=== PATIENT | male | born 2000 | race Caucasian/White ===

== ENCOUNTER 2020-10-29 19:58 | Emergency (ER) | payer OTHER, SELFPAY ==
--- NOTE | ~2020-10-29 | XR_ITS ---
EXAMINATION: XR chest 2V DATE: 10/29/2020 20:19 INDICATION: Midsternal chest pain. Shortness of breath. TECHNIQUE: Frontal and lateral views of the chest were obtained. COMPARISON: None. FINDINGS: The chest demonstrates clear lungs without pneumonia, pleural effusion, or pneumothorax. Th e heart size is normal. IMPRESSION: 1. No acute cardiopulmonary disease. Reviewed, dictated and finalized at location A.
[2020-10-29 20:03] VITALS: BP 138/69; PULSE 67; RESP 17; TEMP 36.9; O2SAT 98
--- NOTE | 2020-10-29 20:06 | ECG_ITS ---
Measurements Intervals [place] Rate: 70 P: 30 RI: 179 QRS: 29 QRSD: 109 T: 62 QT: 359 QTc: 388 Interpretive Statements SINUS RHYTHM INCOMPLETE RIGHT BUNDLE BRANCH BLOCK DELAYED PRECORDIAL R/S TRANSITION ST ELEVATION IN DIFFUSE LEADS- PROBABLY EARLY REPOLARIZATION BORDERLINE ECG Electronically Signed On 10-29-2020 20:15:29 CDT by Colby Simmons D.O.
[2020-10-29] MEDS: ASPIRIN 81 MG CHEWABLE TABLET 324 MG PO (21:23)
[2020-10-29 21:39] LABS: Basophils Percent Auto 0.5 % (0.2-1.2); Eosinophils Absolute Auto 0.1 K/mm3 (0-0.3); Eosinophils Percent Auto 1.4 % (0-4.4); Hematocrit 44.4 % (42.0-52.0); Immature Granulocyte Absolute 0.01 K/mm3 (0.00-0.031); Immature Granulocyte Percent A 0.2 % (0-0.5); Lymphocytes Absolute Auto 2.09 K/mm3 (0.9-3.2); Lymphocytes Percent Auto 36.5 % (18.3-44.2); Mean Corpuscular HGB Conc 33.8 g/dl (32-36); Mean Corpuscular Hemoglobin 30.5 pg (26-34); Mean Corpuscular Volume 90.2 fl (80-100); Mean Platelet Volume 10.6 fl (7.4-10.4); Monocytes Absolute Auto 0.5 K/mm3 (0.1-0.6); Monocytes Percent Auto 8.9 % (2.6-8.5); Neutrophils Percent Auto 52.5 % (45.5-73.1); Platelet Count Result 198 k/mm3 (150-375); Red Blood Count 4.92 M/mm3 (4.6-6.20); Red Cell Distribution Width 12.2 % (11.5-14.5); White Blood Count 5.7 K/mm3 (4.5-10.0)
[2020-10-29 21:48] LABS: INR 1.1; Prothrombin Time 13.7 Seconds (11.1-14.7)
[2020-10-29 21:49] LABS: Partial Thromboplastin Time 28.9 SECONDS (22.3-36.8)
[2020-10-29 21:53] LABS: Anion Gap 10 mmol/L (8-16); Blood Urea Nitrogen 12 mg/dL (9-20); Calcium 9.5 mg/dL (8.4-10.2); Carbon Dioxide 26 mmol/L (22-30); Chloride 105 mmol/L (98-107); Estimated CRCL calculation 114 ml/min; Estimated Glomerular Filt Rate > 60; Glucose 90 mg/dL (65-110); Potassium 4.1 mmol/L (3.4-5.0); Sodium 141 mmol/L (137-145)
[2020-10-29 22:05] LABS: Troponin I < 0.012 ng/mL (0.000-0.034)
--- NOTE | 2020-10-29 22:15 | ED.GENADULT ---
HPI - General Adult General Chief complaint: Chest Pain Stated complaint: chest pain x 1 week from urgent care Time Seen by Provider: 10/29/20 21:16 History of Present Illness HPI narrative: Patient is a 20-year-old male who presents ER with central chest pain. Intermittent over the last week. Occurs only when he feels very stressed out. 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 He will sit down now improved. Family history of anxiety. No personal history of anxiety. No fevers or chills or sweats. No productive cough. No exertional chest pain. Related Data Home Medications Medication Instructions Recorded Confirmed cetirizine [Zyrtec] 10 mg PO DAILY 10/29/20 10/29/20 fluticasone propionate [Flonase] 2 spray INTRANASAL DAILY 10/29/20 10/29/20 Allergies Allergy/AdvReac Type Severity Reaction Status Date / Time No Known Allergies Allergy Verified 10/29/20 20:02 Review of Systems Review of Systems: All systems reviewed & are unremarkable except as noted in HPI and below Constitutional: Constitutional: Denies chills, Denies fever(s) and Denies weakness ENT: Denies nasal congestion and Denies sore throat Cardiovascular: Cardiovascular: Reports chest pain, Denies rapid heart rate and Denies radiating jaw, neck or arm pain Respiratory: Respiratory: Denies cough, Denies dyspnea and Denies wheezing Gastrointestinal: Gastrointestinal: Denies abdominal pain, Denies nausea and Denies vomiting Psychiatric: Psychiatric: Reports anxiety PMFSH Past Medical History Medical History (Updated 10/29/20 @ 22:26 by Alexis Cabrrea MD) Healthy adult male Surgical History Surgical History (Updated 10/29/20 @ 22:25 by Alexis Cabrera MD) No history of previous surgery Social History Social History Gender identity (if verbalized by the patient): Male Exam Narrative: GENERAL: Well-appearing, well-nourished, and in no acute distress. HEAD: Normocephalic, atraumatic. ENT: Mucous membranes moist. CHEST: Clear to auscultation. No respiratory distress. HEART: Regular rate and rhythm. Normal peripheral pulses. EXTREMITIES: Normal range of motion. No edema. SKIN: Warm, dry, no rash. NEURO: Alert and oriented x3. PSYCH: Normal mood and affect. Course Course Emergency Course: Unremarkable evaluation. Discharged with Atarax to take as needed for anxiety. Recommend follow-up with PCP and further evaluation. Vital Signs Vital signs: Vital Signs Temperature 98.4 F 10/29/20 20:03 Pulse Rate 67 10/29/20 20:03 Respiratory Rate 17 10/29/20 20:03 Blood Pressure 138/69 10/29/20 20:03 Pulse Oximetry 98 10/29/20 20:03 Temperature 98.4 F 10/29/20 20:03 Pulse Rate 67 10/29/20 20:03 Respiratory Rate 17 10/29/20 20:03 Blood Pressure 138/69 10/29/20 20:03 Pulse Oximetry 98 10/29/20 20:03 Medical Decision Making Vital Signs Vital Signs: Vital Signs Temperature 98.4 F 10/29/20 20:03 Pulse Rate 67 10/29/20 20:03 Respiratory Rate 17 10/29/20 20:03 Blood Pressure 138/69 10/29/20 20:03 Pulse Oximetry 98 10/29/20 20:03 Temperature 98.4 F 10/29/20 20:03 Pulse Rate 67 10/29/20 20:03 Respiratory Rate 17 10/29/20 20:03 Blood Pressure 138/69 10/29/20 20:03 Pulse Oximetry 98 10/29/20 20:03 Lab Data Result diagrams: 10/29/20 21:33 10/29/20 21:33 Labs: Lab Results 10/29/20 10/29/20 10/29/20 Range/Units 21:33 21:33 21:33 WBC 5.7 (4.5-10.0) K/mm3 RBC 4.92 (4.6-6.20) M/mm3 Hgb 15.0 (14.0-18.0) g/dL Hct 44.4 (42.0-52.0) % MCV 90.2 (80-100) fl MCH 30.5 (26-34) pg MCHC 33.8 (32-36) g/dl RDW 12.2 (11.5-14.5) % Plt Count 198 (150-375) k/mm3 MPV 10.6 H (7.4-10.4) fl Immature Gran % (Auto) 0.2 (0-0.5) % Neut % (Auto) 52.5 (45.5-73.1) % Lymph % (Auto) 36.5 (18.3-44.2) % [place] % (Auto) 8.9 H
[2020-10-29 22:46] VITALS: BP 130/78; PULSE 77; RESP 18; O2SAT 100
== END 2020-10-29 22:46 | disposition home or self-care (01) ==
PROVIDERS: Emergency Provider Emergency Medicine
DX: F41.9 Anxiety disorder, unspecified (principal)
CPT/HCPCS: 36415; 71046; 80048; 84484; 85025; 85610; 85730; 93005; 99284; A9270

== ENCOUNTER 2020-11-23 08:35 | Outpatient (CLI) | payer OTHER, SELFPAY ==
--- NOTE | 2020-11-23 | EST_ITS ---
Patient Info Name: Sarwat Vasquez Age: 20 years : 2000 Gender: Male Ht: 74 in Wt: 150 lbs BSA: 1.87 m2 Exam Date: 11/23/2020 10:03 AM Exam Location: [facility] Stress Patient Status: Outpatient Admit Date: 11/23/2020 Staff Ordering Physician: Vadim Riley MD Attending Provider: Vadim Riley MD Exercise Technologist: Randa Lauren RDCS Exercise Physician: Dougie Hill MD Exam Type: CA stress test treadmill Study Info A treadmill exercise stress test was performed. Summary 1. Normal stress test and stress ECG with near maximal exercise. Protocol: [facility] Stress ECG Details Stage: REST Duration (min): 1 min : 25 sec Speed (mph): 0.0 Grade (%): 0 HR (bpm): 54 SBP (mmHg): 126 DBP (mmHg): 87 METS: --- Stage: REST Duration (min): 37 min : 39 sec Speed (mph): 0.0 Grade (%): 0 HR (bpm): 66 SBP (mmHg): 126 DBP (mmHg): 87 METS: --- Stage: STAGE 1 Duration (min): 1 min : 0 sec Speed (mph): 1.7 Grade (%): 10 HR (bpm): 90 SBP (mmHg): 126 DBP (mmHg): 87 METS: --- Stage: STAGE 1 Duration (min): 2 min : 0 sec Speed (mph): 1.7 Grade (%): 10 HR (bpm): 89 SBP (mmHg): 126 DBP (mmHg): 87 METS: --- Stage: STAGE 1 Duration (min): 3 min : 0 sec Speed (mph): 1.7 Grade (%): 10 HR (bpm): 89 SBP (mmHg): 152 DBP (mmHg): 65 METS: --- Stage: STAGE 2 Duration (min): 1 min : 0 sec Speed (mph): 2.5 Grade (%): 12 HR (bpm): 103 SBP (mmHg): 152 DBP (mmHg): 65 METS: --- Stage: STAGE 2 Duration (min): 2 min : 0 sec Speed (mph): 2.5 Grade (%): 12 HR (bpm): 108 SBP (mmHg): 144 DBP (mmHg): 70 METS: --- Stage: STAGE 2 Duration (min): 3 min : 0 sec Speed (mph): 2.5 Grade (%): 12 HR (bpm): 111 SBP (mmHg): 144 DBP (mmHg): 70 METS: --- Stage: STAGE 3 Duration (min): 1 min : 0 sec Speed (mph): 3.4 Grade (%): 14 HR (bpm): 123 SBP (mmHg): 183 DBP (mmHg): 67 METS: --- Stage: STAGE 3 Duration (min): 2 min : 0 sec Speed (mph): 3.4 Grade (%): 14 HR (bpm): 127 SBP (mmHg): 183 DBP (mmHg): 67 METS: --- Stage: STAGE 3 Duration (min): 3 min : 0 sec Speed (mph): 3.4 Grade (%): 14 HR (bpm): 135 SBP (mmHg): 193 DBP (mmHg): 71 METS: --- Stage: STAGE 4 Duration (min): 1 min : 0 sec Speed (mph): 4.2 Grade (%): 16 HR (bpm): 150 SBP (mmHg): 193 DBP (mmHg): 71 METS: --- Stage: STAGE 4 Duration (min): 2 min : 0 sec Speed (mph): 4.2 Grade (%): 16 HR (bpm): 157 SBP (mmHg): 192 DBP (mmHg): 92 METS: --- Stage: STAGE 4 Duration (min): 3 min : 0 sec Speed (mph): 4.2 Grade (%): 16 HR (bpm): 162 SBP (mmHg): 192 DBP (mmHg): 92 METS: ---
--- NOTE | 2020-11-23 | ECHO_ITS ---
Patient Info Name: Sarwat Vasquez Age: 20 years : 2000 Gender: Male Ht: 74 in Wt: 150 lbs BSA: 1.87 m2 HR: 56 bpm BP: 116 / 68 mmHg Technical Quality: Good Exam Date: 11/23/2020 9:18 AM Exam Location: [facility] Patient Status: Outpatient Admit Date: 11/23/2020 Staff Ordering Physician: Vadim Riley MD Healthcare Architect: Hazel Reynoso RDCS Attending Provider: Vadim Riley MD Referring Physician: Osvaldo GARCIA; Exam Type: CA echo doppler color flow Study Info Indications - CARDIAC MURMUR CHEST PAIN Complete two-dimensional, color flow and Doppler transthoracic echocardiogram is performed. Summary 1. Complete two-dimensional, color flow and Doppler transthoracic echocardiogram is performed. 2. Left ventricular systolic function is normal, estimated at 60-65%. 3. The left ventricular diastolic function is normal. 4. There is trace mitral valve regurgitation. 5. There is mild tricuspid valve regurgitation. 6. No pulmonary hypertension, estimated pulmonary arterial systolic pressure is 34 mmHg. 7. There is trace pulmonic regurgitation. 8. There is trivial pericardial effusion. Left Ventricle Left ventricular chamber dimension is normal. Left ventricular systolic function is normal, estimated at 60-65%. There is no increased left ventricular wall thickness. Left ventricular septal wall motion is normal. The left ventricular diastolic function is normal. Right Ventricle Right ventricular chamber dimension is normal. Right ventricular systolic function is normal. Ventricular Septum Intact interventricular septum visualized by color flow imaging. Left Atria Left atrial chamber dimension is normal. Right Atria Right atrial chamber dimension is normal. Atrial Septum Intact interatrial septum visualized by color flow imaging. Aortic Valve The aortic valve is trileaflet. There is no aortic valve sclerosis. There is no aortic valve stenosis. There is no aortic valve regurgitation. Pulmonic Valve The pulmonic valve is normal. There is no pulmonic valve stenosis. There is trace pulmonic regurgitation. Mitral Valve The mitral valve has normal leaflets. There is no mitral valve stenosis. There is trace mitral valve regurgitation. Tricuspid Valve The tricuspid valve leaflets are normal. There is no significant tricuspid valve stenosis. There is mild tricuspid valve regurgitation. No pulmonary hypertension, estimated pulmonary arterial systolic pressure is 34 mmHg. Pericardium/Pleural There is trivial pericardial effusion. Inferior Vena Cava Normal inferior vena cava with >50% collapse upon inspiration consistent with normal right atrial pressure, 5 mmHg. Aorta The aortic root size at the sinus of Valsalva is normal. The prox ascending aorta size is normal. Left Ventricular Outflow Tract Name Value Normal LVOT 2D LVOT Diameter 2.0 cm LVOT Doppler LVOT Peak Gradient 4 mmHg LVOT Mean Gradient 2 mmHg LVOT VTI 19 cm LVOT VTI/AV VTI Ratio
== END 2020-11-23 08:36 | disposition home or self-care (01) ==
PROVIDERS: PCP Emergency Medicine; Visit Provider Emergency Medicine
DX: R07.89 Other chest pain (principal); R00.1 Bradycardia, unspecified
CPT/HCPCS: 93017; 93306

== ENCOUNTER 2021-01-25 19:35 | Emergency (ER) | payer OTHER, SELFPAY ==
[2021-01-25 19:57] VITALS: BP 133/81; PULSE 62; RESP 18; TEMP 36.3; O2SAT 99
--- NOTE | 2021-01-25 21:30 | ED.GIBLEED ---
HPI - GI Bleed General Chief complaint: GI Bleed Stated complaint: blood in stool Time Seen by Provider: 01/25/21 21:02 Source: patient History of Present Illness HPI Narrative: Patient presents with pain with bloody stools. Reports he had one episode couple weeks ago and again this evening he was concerned so came to the ER for evaluation. Notes blood predominantly on his tissue paper he also noted streaks of blood on his stool. Is not been seen for this before denies family history of GI disorders. Reports he will have intermittent diarrhea every several days but normally has a bowel movement 2 times a day. Denies history of constipation. Denies abdominal pain nausea vomiting diarrhea lightheadedness or dizziness. Reports he just moved from [place] Related Data Home Medications Medication Instructions Recorded Confirmed cetirizine [Zyrtec] 10 mg PO DAILY 10/29/20 10/29/20 fluticasone propionate [Flonase] 2 spray INTRANASAL DAILY 10/29/20 10/29/20 Allergies Allergy/AdvReac Type Severity Reaction Status Date / Time No Known Allergies Allergy Verified 10/29/20 20:02 Review of Systems Review of Systems: CONSTITUTIONAL: Denies fever, chills, or sweats. EYES: Denies visual changes, redness, or discharge. ENT: Denies rhinorrhea, congestion, sore throat, or otalgia. CARDIOVASCULAR: Denies chest pain, palpitations, or edema. RESPIRATORY: Denies cough or dyspnea. GASTROINTESTINAL: Denies abdominal pain, nausea, vomiting, or diarrhea. GENITOURINARY: Denies dysuria or hematuria. SKIN: Denies rash or itching. MUSCULOSKELETAL: Denies back pain, joint pain, or myalgia. NEUROLOGIC: Denies headache, numbness, dizziness, or weakness. PSYCHIATRIC: Denies anxiety or depression. All systems reviewed & are unremarkable except as noted in HPI and below PMFSH Past Medical History Medical History Healthy adult male Surgical History Surgical History No history of previous surgery Social History Social History Gender identity (if verbalized by the patient): Male Exam Narrative: GENERAL: Well-appearing, well-nourished, and in no acute distress. HEAD: Normocephalic, atraumatic. EYES: PERRLA and EOMI. ENT: Nares clear, no rhinorrhea or epistaxis. Mucous membranes moist. NECK: Supple. No masses. No JVD ABDOMEN: Soft, nontender, nondistended, normal active bowel sounds. RECTAL: No active bleeding small external non thrombosed hemorrhoid in the posterior left aspect EXTREMITIES: Normal range of motion. No edema. SKIN: Warm, dry, no rash. NEURO: No focal deficits. Alert and oriented x3. PSYCH: Normal mood and affect. Course Vital Signs Vital signs: Vital Signs Temperature 36.3 C L 01/25/21 19:57 Pulse Rate 62 01/25/21 19:57 Respiratory Rate 18 01/25/21 19:57 Blood Pressure 133/81 01/25/21 19:57 Pulse Oximetry 99 01/25/21 19:57 Temperature 36.3 C L 01/25/21 19:57 Pulse Rate 78 01/25/21 21:41 Respiratory Rate 18 01/25/21 21:41 Blood Pressure 134/90 01/25/21 21:41 Pulse Oximetry 100 01/25/21 21:41 MDM - GI Bleed MDM Narrative Medical decision making narrative: H&P as above, vss, pt looks clinically well, exam with external hemorrhoid, labs/img considered, symptomatic relief available as needed, on reevaluation pt continues to looks clinically well. Suspect hemorrhoid, dns significant hemorrhage thrombosed hemorrhoid, fistula. plan to tx/monitor as op w/ pcm f/u findings/plan discussed with pt, pt agree/comfortable with plan, return precautions given Discharge Plan Discharge Clinical Impression: Hemorrhoids Qualifiers: Hemorrhoid type: unspecified Qualified Code(s): K64.9 - Unspecified hemorrhoids Patient Disposition: Home, Self-Care Condition: Improved Instructions: Antibiotic Form, Hemorrhoids (ED), High Fiber Di
[2021-01-25 21:41] VITALS: BP 134/90; PULSE 78; RESP 18; O2SAT 100
== END 2021-01-25 21:45 | disposition home or self-care (01) ==
PROVIDERS: Emergency Provider Emergency Medicine; PCP Emergency Medicine
DX: K64.4 Residual hemorrhoidal skin tags (principal)
CPT/HCPCS: 99281

== ENCOUNTER 2025-02-01 17:45 | Emergency (ER) | payer OTHER, SELFPAY ==
--- NOTE | 2025-02-01 17:46 | ED_ITS ---
HPI - General Adult General Chief complaint: Extremity Injury, Lower Stated complaint: INFECTED TOE Time Seen by Provider: 02/01/25 17:55 Source: patient, RN notes reviewed and old records reviewed Mode of arrival: ambulatory Limitations: no limitations History of Present Illness HPI narrative: 24-year-old male presents to the [facility] with concerns for an infection to the left great toe. Started approximately 10 days ago. Tried cutting the nail back a little more. Redness and swelling is noted without fluctuance. Patient states that he was trying to take care of it this morning when there was blood drained from the area. Related Data Home Medications ?Medication ?Instructions ?Recorded ?Confirmed ?Last Taken ?Type cetirizine 10 mg tablet (Zyrtec) 10 mg PO DAILY 02/01/25 Unknown History fluticasone propionate 50 2 spray intranasal DAILY 02/01/25 Unknown History mcg/actuation nasal spray,suspension bupropion HCl 300 mg 24 hr tablet, mg PO 02/01/25 Unk nown History extended release mirtazapine 15 mg tablet mg 02/01/25 Unknown History Allergies Allergy/AdvReac Type Severity Reaction Status Date / Time buspirone Allergy Unknown Unknown Verified 02/01/25 18:02 escitalopram (From Lexapro) Allergy Unknown Unknown Verified 02/01/25 18:02 paroxetine (From Paxil) Allergy Unknown Unknown Verified 02/01/25 18:02 Review of Systems 2 Review of Systems: All systems reviewed & are unremarkable except as noted in HPI and below Constitutional: Constitutional: Reports no additional constitutional complaints ENT: Reports system reviewed and no additional complaints, except as documented Cardiovascular: Cardiovascular: Reports no additional cardiovascular complaints, Denies chest pain and Denies dyspnea Respiratory: Respiratory: Reports no additional respiratory complaints, Denies chest congestion, Denies cough and Denies dyspnea Musculoskeletal: Musculoskeletal: Reports no additional musculoskeletal complaints Integumentary/Breasts: Skin/Breast: Reports as per HPI [facility] Past Medical History Medical History Healthy adult male Surgical History Surgical History No history of previous surgery Social History Social History : Male Comments At the time of my signature, I reviewed and agree with the nursing past medical, surgical, social, and family history. There is no relevant family history pertinent to the patient complaint. Exam 2 Const: General: cooperative, healthy appearing, comfortable, no acute distress, well developed, alert and well nourished Nutritional Appearance: w ell nourished Orientation/consciousness: patient oriented x3 Limitations: no limitations HENMT: Head: normal to inspection Eyes: General: appearance normal, both eyes and all related structures A lignment and Position: alignment normal Neck: Neck: normal visual inspection, full ROM, no lymphadenopathy and no meningeal signs Chest: Chest palpation & inspection: normal inspection of the chest Resp: Effort & Inspection: normal respiratory effort and able to speak in complete sentences Cardio: Rate: regular rate Skin: General skin exam: normal color and no rashes or lesions noted Full body images: 1. Left toe paronychia on the lateral aspect of the great toe. Dry drainage noted, no fluctuance, redness is noted without circumferential redness. Neuro: General: patient oriented x3, gait normal, moves all extremities and no meningeal signs Cognition (Neuro): normal cognition Speech: normal speech Gait exam (Neuro): Normal gait present Extrem: General: normal to inspection, full ROM, capillary refill normal and normal gait Psych: Appearance: grossly normal and well kempt Mental Status: mental status grossly normal Speech and movement: Normal speech and movement present and Clear speech present Affect: normal affect Attitude: cooperative Course Course Level of Care: Express Care Visit Vital Signs Vital signs: Vital Signs Temperature 98 F 02/01/25 17:55 Pulse Rate 80 02/01/25 17:55 Respiratory Rate 16 02/01/25 17:55 Blood Pressure 120/82 02/01/25 17:55 Pulse Oximetry 100 02/01/25 17:55 Temperature 98 F 02/01/25 17:55 Pulse Rate 80 02/01/25 17:55 Respiratory Rate 16 02/01/25 17:55 Blood Pressure 120/82 02/01/25 17:55 Pulse Oximetry 100 02/01/25 17:55 Reviewed Medical Decision Making MDM Narrative Medical decision making narrative: Patient sitting comfortably in exam room. Nontoxic, vitals stable. Patient in no acute distress Ten day history of toe discomfort, swelling. Most likely paronychia it has already been drained. Will cover with antibiotic. Patient is appropriate for outpatient treatment with close follow-up Discharge instructions reviewed with patient, as well as provided in writing per nursing staff. The instructions also include specific and strict return/GO TO THE ER as well as f/u information. All questions have been answered, and the patient deny any further questions with discharge and discharge plan. Some parts of this dictation were generated by voice recognition software and may contain typographical and/or grammatical inaccuracies. Differential Diagnosis Differential Diagnosis: paronychia, cellulitis Medical Records Medical records reviewed: Yes I reviewed the external patient's medical records. Vital Signs Vital Signs: Vital Signs Temperature 98 F 02/01/25 17:55 Pulse Rate 80 02/01/25 17:55 Respiratory Rate 16 02/01/25 17:55 Blood Pressure 120/82 02/01/25 17:55 Pulse Oximetry 100 02/01/25 17:55 Temperature 98 F 02/01/25 17:55 Pulse Rate 80 02/01/25 17:55 Respiratory Rate 16 02/01/25 17:55 Blood Pressure 120/82 02/01/25 17:55 Pulse Oximetry 100 02/01/25 17:55 Reviewed Lab Data Lab results reviewed: Yes I reviewed the patient's lab results. Labs: Reviewed Critical Care Time Critical Care Time Critical Care Time: No Discharge Plan Discharge Clinical Impression: Paronychia Patient Disposition: Home Condition: Stable Instructions: Antibiotic Form, Paronychia (ED) Additional Instructions: soak twice a day for 15-20 minutes in warm soapy water and Epson salt. Take antibiotic as prescribed follow-up with primary care provider if symptoms continue you can follow-up with subject scientific research Dr. Thomas. phone number and address was given to you Patient Language: Israeli Prescriptions: New cephalexin 500 mg capsule 500 mg PO QID 7 Days Qty: 28 0RF No Action mirtazapine 15 mg tablet bupropion HCl 300 mg tablet extended release 24 hr PO cetirizine [Zyrtec] 10 mg Tablet 10 mg PO DAILY fluticasone propionate [Flonase] 50 mcg/actuation Advance,Suspension 2 spray INTRANASAL DAILY hydroxyzine pamoate [Vistaril] 25 mg capsule 25 mg PO TID PRN (Reason: anxiety) Qty: 14 0RF Follow-up/Referrals: David Thomas Jr., DPM [Physician, Podiatry] Vadim Riley MD [Primary Care Provider, Family Practice] - 2 Weeks Time of Disposition: 18:06
[2025-02-01 17:55] VITALS: BP 120/82; PULSE 80; RESP 16; TEMP 36.6; O2SAT 100
== END 2025-02-01 18:12 | disposition home or self-care (01) ==
PROVIDERS: Emergency Provider Nurse Practitioner; PCP Emergency Medicine
DX: L03.032 Cellulitis of left toe (principal)
CPT/HCPCS: 99213; G0463